=== PATIENT | male | born 1975 | race Caucasian/White ===

== ENCOUNTER 2024-07-23 17:56 | Emergency (ER) | payer OTHER, SELFPAY ==
[2024-07-23 17:56] VITALS: BMI 22.8
[2024-07-23 18:03] VITALS: BP 141/87
[2024-07-23 18:23] LABS: % Basophils 0.4 % (0-2); % Eosinophils 1.1 % (0-6); % Immature Granulocytes 0.2 % (0-0.5); % Lymphocytes 24.8 % (20.5-51.1); % Monocytes 7.6 % (1.7-9.3); % Neutrophils 65.9 % (42.2-75.2); Absolute Eosinophils 0.1 10^3/uL (0-0.7); Absolute Monocytes 0.6 10^3/uL (0.1-0.6); Absolute Neutrophils 5.3 10^3/uL (1.4-6.5); Hematocrit 37.2 % (39.0-52.0); Hemoglobin 13.1 g/dL (13.0-18.0); Mean Corp Hgb Conc. 35.2 g/dL (33.0-37.0); Mean Corpuscular Hgb 32.2 pg (27.0-31.0); Mean Corpuscular Volume 91.4 fL (80.0-94.0); Mean Platelet Volume 10.6 fL (7.4-10.4); Nucleated Red Blood Cells % 0 % (-); Platelet Count 238 10^3/uL (130-400); Red Blood Cell Count 4.07 10^6/uL (4.70-6.10); Red Cell Dist. Width 12.5 % (11.5-14.5); White Blood Cell Count 8.1 10^3/uL (4.8-10.8)
[2024-07-23 18:33] LABS: ALT (SGPT) 25 U/L (0-50); AST (SGOT) 28 U/L (17-59); Albumin 4.6 g/dl (3.5-5.0); Alkaline Phosphatase 50 U/L (38-126); Blood Urea Nitrogen 20 mg/dl (9-20); Calcium 9.7 mg/dl (8.4-10.2); Carbon Dioxide 27 mmol/L (22-30); Chloride 100 mmol/L (98-107); Glucose 102 mg/dl (70-99); Lipase 83 U/L (23-300); Potassium 4.1 mmol/L (3.5-5.1); Sodium 136 mmol/L (135-145); Total Bilirubin 0.4 mg/dl (0.2-1.3); Total Protein 7.4 g/dl (6.3-8.2); eGFR > 60.00
[2024-07-23 18:44] LABS: Troponin I < 0.012 ng/ml
[2024-07-23 20:30] VITALS: BP 140/90
[2024-07-23 21:00] VITALS: BP 135/86
--- NOTE | 2024-07-23 21:07 | ED.GENMED ---
History of Present Illness
General
Chief Complaint: Abdominal Pain
Source: patient
Exam Limitations: none
Time Seen by Provider: 07/23/24 20:47
History of Present Illness
History of Present Illness:
49-year-old male presents complaining of intermittent epigastric abdominal pain over the past several months but more persistent over the past 2 days. Hard to identify triggering factors but seems to be made worse with eating. Sometimes is made
worse with working out. It is not pleuritic. There is no chest pain or breath. No vomiting. No fever. He drinks tea regularly and has a couple coffee a day does not use NSAIDs regularly and drinks alcohol socially. He denies any dark or tarry
stools. The pain does not radiate to the back. No recent travel or surgery. No other complaints at this time
Phy Exam
Physical Exam
Physical Exam:
General: Well-appearing male no acute respiratory distress HEENT: Normocephalic atraumatic
Heart: Regular rate and rhythm
Lungs: Clear no wheeze
Abdomen soft tender to the epigastric region mildly to the right upper quadrant no guarding negative Forrest sign no rebound tenderness normal bowel sounds nondistended no costovertebral
Extremities: No cyanosis or edema
Skin: Warm no rash
Course
Orders/Labs/Results
Orders:
Orders
07/23/24 17:57
Electrocardiogram (*1) Urgent
Reason for Study: Chest Pain
EKG- Treatment ONCE
07/23/24 18:11
Complete Blood Count/With Diff Urgent
Comprehensive Metabolic Panel Urgent
Lipase Urgent
Troponin I Urgent
07/23/24 21:06
US Abdomen Complete/Upper Urgent
Comment:
Reason For Exam: epigastric pain
Abnormal Lab Results
07/23/24
18:11
RBC 4.07 L 10^6/uL
(4.70-6.10)
Hct 37.2 L %
(39.0-52.0)
MCH 32.2 H pg
(27.0-31.0)
MPV 10.6 H fL
(7.4-10.4)
Glucose 102 H mg/dl
(70-99)
07/23/24 18:11
07/23/24 18:11
Vital Signs
Initial and Last Documented VS:
Initial Vital Signs
Temp Pulse Resp BP Pulse Ox
98.4 F 83 16 141/87 99
07/23/24 18:03 07/23/24 18:03 07/23/24 18:03 07/23/24 18:03 07/23/24 18:03
Last Documented Vital Signs
Temp Pulse Resp BP Pulse Ox
98.4 F 83 16 123/69 99
07/23/24 18:03 07/23/24 18:03 07/23/24 18:03 07/23/24 22:00 07/23/24 22:01
MDM/Problems Addressed
Differential Diagnosis Includes:
Epigastric abdominal discomfort. Consider gastritis versus biliary colic versus pancreatitis. Pain is not pleuritic there is no chest pain or shortness of breath. Do not suspect ACS or PE. Troponin was ordered through triage which is
undetectable. Lipase is normal. Will order ultrasound to evaluate for any structural issues with the gallbladder. If negative consider treatment for gastritis with PPIs
*Critical Care Note
Total Time (30-74mins, 75-104mins- exclusive of procedures): Not Applicable
Update Note
Update Note:
Ultrasound negative for acute finding. Suspect possible gastritis causing epigastric pain. Recommend PPIs and GI follow-up. Stable for discharge
ED Attending Note
-
Portions of this chart may have been created with voice recognition software.� Occasional wrong word or��sound alike� substitutions may have occurred due to the inherent limitations of voice recognition software.
Discharge Plan
Departure
Patient Disposition: Home (Routine Discharge)
Date of Disposition: 07/23/24
Time of Disposition: 23:10
Patient with high blood pressure during this ER visit?: No
Discharge Problem:
Abdominal pain
Instructions: Abdominal Pain
Prescriptions:
New
pantoprazole [Protonix] 40 mg tablet,delayed release (DR/EC)
40 mg PO DAILY Qty: 14 0RF
Referrals:
Leonila Combs DO [Family Provider] -
Ezra Salinas MD [Active] -
Activity Restrictions/Additional Instructions:
Use Protonix as directed. Follow-up with GI doctor if symptoms persist return if worse
Interventions
Interventions:
*Risk Screen - Suicide Last Done: 07/23/24 18:03
*General Assessment Last Done: 07/23/24 18:03
*Neglect/Abuse Screening Last Done: 07/23/24 18:03
*ED COVID-19 Vaccine History Last Done: 07/23/24 18:03
BC-Zqzbfo-Mclvrflobj Assessment Last Done: 07/23/24 20:42
Discharge Date and Time
Print Language: CANADIAN
[2024-07-23 22:00] VITALS: BP 123/69
[2024-07-23 23:19] VITALS: BP 123/67
== END 2024-07-23 23:21 | disposition home or self-care (01) ==
LOC: EMR 17:56
PROVIDERS: EMERGENCY PHYSICIAN Emergency Medicine; FAMILY PHYSICIAN Family Medicine
DX: R10.13 Epigastric pain (principal)
CPT/HCPCS: 99284; 76700; 80053; 83690; 84484; 85025; 93005

== ENCOUNTER 2024-08-30 16:20 | Emergency (ER) | payer OTHER, SELFPAY ==
[2024-08-30 16:26] VITALS: BP 152/84
[2024-08-30 16:56] LABS: % Basophils 0.5 % (0-2); % Eosinophils 0.8 % (0-6); % Immature Granulocytes 0.3 % (0-0.5); % Lymphocytes 25.4 % (20.5-51.1); Absolute Eosinophils 0.1 10^3/uL (0-0.7); Absolute Lymphocytes 1.6 10^3/uL (1.2-3.4); Absolute Monocytes 0.4 10^3/uL (0.1-0.6); Absolute Neutrophils 4.2 10^3/uL (1.4-6.5); Hematocrit 38.2 % (39.0-52.0); Hemoglobin 13.4 g/dL (13.0-18.0); Mean Corp Hgb Conc. 35.1 g/dL (33.0-37.0); Mean Corpuscular Hgb 32.4 pg (27.0-31.0); Mean Corpuscular Volume 92.3 fL (80.0-94.0); Mean Platelet Volume 11.1 fL (7.4-10.4); Nucleated Red Blood Cells % 0 % (-); Platelet Count 217 10^3/uL (130-400); Red Blood Cell Count 4.14 10^6/uL (4.70-6.10); Red Cell Dist. Width 12.3 % (11.5-14.5); White Blood Cell Count 6.2 10^3/uL (4.8-10.8)
[2024-08-30 17:10] LABS: ALT (SGPT) 41 U/L (0-50); AST (SGOT) 79 U/L (17-59); Albumin 4.8 g/dl (3.5-5.0); Alkaline Phosphatase 44 U/L (38-126); Blood Urea Nitrogen 14 mg/dl (9-20); Calcium 10.2 mg/dl (8.4-10.2); Carbon Dioxide 32 mmol/L (22-30); Chloride 100 mmol/L (98-107); Glucose 102 mg/dl (70-99); Lipase 74 U/L (23-300); Potassium 4.4 mmol/L (3.5-5.1); Sodium 140 mmol/L (135-145); Total Bilirubin 0.7 mg/dl (0.2-1.3); Total Protein 7.7 g/dl (6.3-8.2); eGFR > 60.00
[2024-08-30 17:22] LABS: Troponin I < 0.012 ng/ml
[2024-08-30 18:27] LABS: Urine Albumin Negative (Neg - Trace); Urine Bilirubin Negative (Negative); Urine Character Clear (Clear); Urine Glucose Negative (Negative); Urine Ketone Negative (Negative); Urine Leukocyte Negative (Negative); Urine Nitrite Negative (Negative); Urine Occult Blood Negative (Negative); Urine Urobilinogen Negative (Neg - 1+)
[2024-08-30 18:31] LABS: Urine Color Straw
--- NOTE | 2024-08-30 18:57 | ED.GENMED ---
History of Present Illness
General
Chief Complaint: Abdominal Pain
Source: patient
Exam Limitations: none
Time Seen by Provider: 08/30/24 17:42
Nursing documentation reviewed up to this point in time: agreed with
History of Present Illness
History of Present Illness:
49 yo male here for episodes of mid epigastric pain that sometimes radiates to RUQ and today 4 p.m. had a 1.5 hour episode of severe sharp pain in these areas that also radiated through to right flank area.
Pt evaluated here 6 weeks ago for similar pain, had neg upper abdominal US and put on Pantoprazole that helped for about a week so he stopped it and the pains returned. He restarted it and it took a week before pain improved. Eating does not affect
the pain. It comes and goes with no particular pattern.
He followed up with GI doctor here today and told he didn't think it was GERD, and when the (points to bilateral anterior ribs on either side of xyphoid and the tip if xyphoid itself) were palpated he was told it could be costochondritis. He has an
upper endoscopy recommended.
He also mentioned MRI which pt was hoping to get here today
Pt denies fever/diarrhea/constipation.
Past History
Past History
ED Past Medical History: None
ED Past Surgical History: Appendectomy
Social History
Tobacco: Non-smoker
Alcohol: Occasional
Personal:
Living: with family
Employment: Employed (Has his own software company)
Review of Systems
Review of Systems
Allergies reviewed?: Yes
All Other Systems: ROS reviewed and negative except as documented in HPI and ROS
Constitutional: Denies fever or chills
Respiratory: Denies trouble breathing
Cardiac: Denies chest pain
ABD/GI: Reports abdominal pain; Denies nausea, vomiting, diarrhea, constipated or anorexia
Musculoskeletal: Reports other (Point tender over tip of the xiphoid and rib cage to either side of the lower xiphoid.)
Skin: Reports no symptoms
Neurological: Reports no symptoms
Phy Exam
Physical Exam
Physical Exam:
GENERAL: No acute distress. A&Ox3.
CONSTITUTIONAL: Afebrile.
EYES: clear, conjunctivae normal
ENMT: moist mucus membranes
RESPIRATORY: Regular respirations, nonlabored, lungs clear.
CARDIOVASCULAR: Regular rate and rhythm, no murmurs, no rubs.
GI: Soft, nontender, normal BS
MUSCULOSKELETAL: Moves with ease. Well perfused. Point tender tip of xyphoid and rim of ribcage on either side of this area.
SKIN: Warm, dry, pink
PSYCH: Normal mood and affect. Well kept, interactive and appropriate
NEUROLOGIC: Awake, alert and oriented. No focal neurological deficits
Course
Orders/Labs/Results
Orders:
Orders
08/30/24 16:30
Electrocardiogram (*1) Urgent
Reason for Study: Chest Pain
EKG- Treatment ONCE
08/30/24 16:42
Complete Blood Count/With Diff Urgent
Comprehensive Metabolic Panel Urgent
Lipase Urgent
Troponin I Urgent
08/30/24 18:20
Urinalysis Reflex To Culture Urgent
Date Specimen was Collected: 08/30/24
Time Specimen was Collected: 18:15
08/30/24 18:25
CT Abd/pel Without Iv Or Oral Urgent
Comment:
Reason For Exam: mid to R upper abd pain, right flank pain
Abnormal Lab Results
08/30/24
16:42
RBC 4.14 L 10^6/uL
(4.70-6.10)
Hct 38.2 L %
(39.0-52.0)
MCH 32.4 H pg
(27.0-31.0)
MPV 11.1 H fL
(7.4-10.4)
Carbon Dioxide 32 H mmol/L
(22-30)
Glucose 102 H mg/dl
(70-99)
AST 79 H U/L
(17-59)
08/30/24 16:42
08/30/24 16:42
Vital Signs
Initial and Last Documented VS:
Initial Vital Signs
Temp Pulse Resp BP Pulse Ox
97.9 F 74 16 152/84 100
08/30/24 16:26 08/30/24 16:26 08/30/24 16:26 08/30/24 16:26 08/30/24 16:26
Last Documented Vital Signs
Temp Pulse Resp BP Pulse Ox
97.9 F 74 16 152/84 100
08/30/24 16:26 08/30/24 16:26 08/30/24 16:26 08/30/24 16:26 08/30/24 16:26
MDM/Problems Addressed
Differential Diagnosis Includes:
Kidney stone, cholecystitis, costochondritis
MDM/Problems Addressed:
49 yo male here for episodes of mid epigastric pain that sometimes radiates to RUQ and today 4 p.m. had a 1.5 hour episode of severe sharp pain in these areas that also radiated through to right flank area.
Pt evaluated here 6 weeks ago for similar pain, had neg upper abdominal US and put on Pantoprazole that helped for about a week so he stopped it and the pains returned. He restarted it and it took a week before pain improved. Eating does not affect
the pain. It comes and goes with no particular pattern.
He followed up with GI doctor here today and told he didn't think it was GERD, and when the (points to bilateral anterior ribs on either side of xyphoid and the tip if xyphoid itself) were palpated he was told it could be costochondritis. He has an
upper endoscopy recommended.
He also mentioned MRI which pt was hoping to get here today
Pt denies fever/diarrhea/constipation.
EKG sinus bradycardia with sinus arrhythmia incomplete right BBB no changes
CBC with no clinically significant abnormality
CMP with no clinically significant abnormality
Troponin normal
UA negative
At this time patient is only tender at the tip of the xiphoid into the ribs either side, direct palpation of this area immediately reproduces his pain
This does not however explain the intermittent pains that he is getting in that area that radiates to the right upper quadrant and today through to the right flank.
Reviewed US report from 07/23/24: IMPRESSION: No evidence of cholelithiasis, gallbladder wall thickening or biliary tract dilatation.
Pancreas and proximal abdominal aorta significantly obscured, most likely by overlying bowel gas.
Case discussed with Dr. Cooper who agrees with plain CT abd pelvis to r/o kidney stone
7:45 PM:
CT abdomen pelvis plain radiology report read: IMPRESSION:
1. No significant acute abnormality identified in the abdomen or pelvis, within the limits of unenhanced CT, as described above.
2. Mild to moderate diffuse colonic stool burden may reflect constipation.
Copy of report given to pt.
*EKG
EKG Intrepretation Date: 08/30/24
Interpretation: abnormal
Heart Rate: 58
Rate: bradycardiac
Rhythm: sinus and sinus arrhythmia
[place]: normal axis
Interval: normal interval
QRS Pattern: right bundle branch block
Ischemia: no ischemia
ED Attending Note
-
Portions of this chart may have been created with voice recognition software.� Occasional wrong word or��sound alike� substitutions may have occurred due to the inherent limitations of voice recognition software.
Discharge Plan
Departure
Prescriptions:
No Action
pantoprazole [Protonix] 40 mg tablet,delayed release (DR/EC)
40 mg PO DAILY Qty: 14 0RF
Referrals:
Leonila Combs, DO [Family Provider] -
Interventions
Interventions:
*Risk Screen - Suicide Last Done: 08/30/24 16:26
*Neglect/Abuse Screening Last Done: 08/30/24 16:26
*ED- Fall Risk Assessment Last Done: 08/30/24 16:26
Discharge Date and Time
Print Language: WELSH
[2024-08-30 20:00] VITALS: BP 148/80
== END 2024-08-30 20:20 | disposition home or self-care (01) ==
LOC: EMR 16:20
PROVIDERS: Registered Nurse; EMERGENCY PHYSICIAN Emergency Medicine; FAMILY PHYSICIAN Family Medicine
DX: R10.13 Epigastric pain (principal); Z90.49 Acquired absence of other specified parts of digestive tract
CPT/HCPCS: 99284; 74176; 80053; 81003; 83690; 84484; 85025; 93005

== ENCOUNTER 2024-09-05 06:23 | Day surgery (SDC) | payer OTHER, SELFPAY | END 2024-09-05 12:27 | disposition home or self-care (01) | LOC: GI 06:23 | PROVIDERS: ATTENDING PHYSICIAN Internal Medicine Gastroenterology | DX: R10.13 Epigastric pain (principal); K29.70 Gastritis, unspecified, without bleeding; K29.50 Unspecified chronic gastritis without bleeding | CPT/HCPCS: 43239; 88305; 88342 ==

== ENCOUNTER 2025-05-09 20:11 | Emergency (ER) | payer OTHER, SELFPAY ==
[2025-05-09 20:16] VITALS: BP 149/86
[2025-05-09 20:59] LABS: Hematocrit 37.3 % (39.0-52.0); Hemoglobin 12.9 g/dL (13.0-18.0); Mean Corp Hgb Conc. 34.6 g/dL (33.0-37.0); Mean Corpuscular Volume 91.2 fL (80.0-94.0); Nucleated Red Blood Cells % 0 % (-); Platelet Count 273 10^3/uL (130-400); Red Cell Dist. Width 12.5 % (11.5-14.5)
[2025-05-09 21:20] LABS: ALT (SGPT) 25 U/L (0-50); AST (SGOT) 26 U/L (17-59); Albumin 4.7 g/dl (3.5-5.0); Alkaline Phosphatase 43 U/L (38-126); Blood Urea Nitrogen 20 mg/dl (9-20); Calcium 9.6 mg/dl (8.4-10.2); Carbon Dioxide 30 mmol/L (22-30); Chloride 99 mmol/L (98-107); Glucose 112 mg/dl (70-99); Potassium 4.3 mmol/L (3.5-5.1); Sodium 134 mmol/L (135-145); Total Protein 7.3 g/dl (6.3-8.2); eGFR > 60.00
[2025-05-09 21:32] LABS: Troponin I < 0.012 ng/ml
== END 2025-05-09 23:00 ==
LOC: EMR 20:11
PROVIDERS: Student in an Organized Health Care Education/Training Program
DX: Z53.21 Procedure and treatment not carried out due to patient leaving prior to being seen by health care provider (principal)
CPT/HCPCS: 80053; 84484; 85025; 93005